=== PATIENT | female | born 1990 | race American Indian/Alaskan Native ===

== ENCOUNTER 2017-07-20 16:12 | Emergency (ER) | payer MEDICAID ==
[2017-07-20 17:45] VITALS: BP 122/64
[2017-07-20 18:24] LABS: Bilirubin,Urine NEG (Negative); Blood,Urine NEG (Negative); Color,Urine Yellow (Yellow); Mucus,Urine FEW /HPF; Nitrite,Urine NEG (Negative); Protein,Urine <15 mg/dL mg/dL (Negative); RBC,Urine < 1.0 /HPF (0.0-6.0)
[2017-07-20 18:28] LABS: Alanine Aminotransferase 17 units/L (7-56); Albumin 3.6 g/dL (3.9-5); BUN/Creatinine Ratio 18; Blood Urea Nitrogen 9 mg/dL (7-17); Calcium 8.8 mg/dL (8.4-10.2); Hemolysis Index 9
[2017-07-20 18:33] LABS: Basophils % (Auto) 0.6 % (0.0-1.8); Eosinophils # (Auto) 0.1 K/mm3 (0.0-0.4); Eosinophils % (Auto) 1.1 % (0.0-4.3); Hematocrit 39.2 % (30.3-42.9); Hemoglobin 12.5 gm/dl (10.1-14.3); Lymphocytes # (Auto) 1.9 K/mm3 (1.2-5.4); Lymphocytes % (Auto) 33.6 % (13.4-35.0); Mean Corpuscular HGB Conc 32 % (30-34); Mean Corpuscular Hemoglobin 27 pg (28-32); Mean Corpuscular Volume 85 fl (79-97); Monocytes # (Auto) 0.4 K/mm3 (0.0-0.8); Monocytes % (Auto) 6.3 % (0.0-7.3); Platelet Count 178 K/mm3 (140-440); Red Blood Count 4.63 M/mm3 (3.65-5.03); Red Cell Distribution Width 19.9 % (13.2-15.2)
== END 2017-07-21 03:40 | disposition left against medical advice (07) ==
LOC: ED 16:12
DX: E86.0 Dehydration (principal); Z53.21 Procedure and treatment not carried out due to patient leaving prior to being seen by health care provider
CPT/HCPCS: 36415; 80053; 81001; 84702; 85025

== ENCOUNTER 2021-04-12 11:12 | Outpatient (CLI) | payer MEDICAID ==
[2021-04-12 12:08] VITALS: BP 99/59
[2021-04-12] MEDS ORDERED: LACTATED RINGERS 500 ML IV ONE (12:39)
== END 2021-04-12 12:55 | disposition home or self-care (01) ==
LOC: TRG 11:12 → APU 11:14 → TRG 12:55
PROVIDERS: ATTEND Obstetrics & Gynecology
DX: Z34.92 Encounter for supervision of normal pregnancy, unspecified, second trimester (principal); Z3A.23 23 weeks gestation of pregnancy
CPT/HCPCS: 59025

== ENCOUNTER 2021-05-16 11:16 | Outpatient (CLI) | payer MEDICAID ==
[2021-05-16 11:49] VITALS: BP 94/63
[2021-05-16] MEDS ORDERED: TERBUTALINE 1 MG/1 ML INJ SUB-Q SCH (12:00)
[2021-05-16 12:02] LABS: Bilirubin,Urine NEG (Negative); Blood,Urine NEG (Negative); Color,Urine Yellow (Yellow); Mucus,Urine FEW /HPF; Protein,Urine <15 mg/dL mg/dL (Negative)
[2021-05-16] MEDS ORDERED: LACTATED RINGERS 1,000 ML IV ONE (12:26)
--- NOTE | 2021-05-16 12:46 | Ultrasound Report ---
US OB limited, US OB BPP wo non-stress INDICATION / CLINICAL INFORMATION: BPP with MARTHA for wellbeing. COMPARISON: None available. FINDINGS: BREATHING MOVEMENT = 2 GROSS BODY MOVEMENT = 2 TONE = 2 QUALITATIVE AMNIOTIC FLUID VOLUME = 2 TOTAL BIOPHYSICAL SCORE = 8/8 AMNIOTIC FLUID INDEX (cm) = 14.8 PRESENTATION: Transverse. Head to maternal right. HEART RATE (beats per minute): 156 Additional findings: Anterior placenta is free of the os. No significant abnormality. IMPRESSION: 1. Single live intrauterine . No significant sonographic abnormality. 2. biophysical profile = 8/8 3. MARTHA is normal, measuring 14.8 cm. Signer Name: Antonio Pavon MD Signed: 05/16/2021 12:42 PM Workstation Name: [id number]
== END 2021-05-16 13:06 | disposition home or self-care (01) ==
LOC: TRG 11:16 → APU 11:18 → TRG 13:06
PROVIDERS: ATTEND Student in an Organized Health Care Education/Training Program
DX: Z34.93 Encounter for supervision of normal pregnancy, unspecified, third trimester (principal); Z3A.28 28 weeks gestation of pregnancy
CPT/HCPCS: 59025; 76815; 76819; 81001